=== PATIENT | male | born 1970 | race Caucasian/White ===

== ENCOUNTER → 2016-05-22 | Outpatient (CLI) | payer OTHER ==
--- NOTE | 2016-05-22 11:52 | DX ---
Bilateral Calcaneus, 2 Views Each History: Bilateral heel pain. Findings: Small enthesophyte is seen in the plantar insertion of the right calcaneus. Mild enthesopat hy is seen at the Achilles insertion of both calcanei. Normal mineralization. No evidence for acute f racture or dislocation. Impression: Mild enthesopathy at the Achilles insertion to both calcanei. Small enthesophyte at the r ight plantar insertion.
== END ==
LOC: BMCIMAGING 10:06
PROVIDERS: ATTEND Podiatrist Foot & Ankle Surgery
DX: M76.61 Achilles tendinitis, right leg (principal); M76.62 Achilles tendinitis, left leg